=== PATIENT | male | born 1990 | race Caucasian/White ===

== ENCOUNTER 2020-03-13 09:04 | Emergency (ER) | payer OTHER ==
[~2020-03-13] VITALS: Ht 170.2 cm; Wt 71.2 kg
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
--- NOTE | 2020-03-13 09:08 | NUR ---
SEEN AND EXAMINED BY .
--- NOTE | 2020-03-13 10:55 | NUR ---
Patient discharged in custody in stable condition. Written and verbal after care instructions given. Patient verbalizes understanding of instruction.
[2020-03-13 11:21] VITALS: BP 127/72
== END 2020-03-13 11:21 ==
LOC: ER 09:13
DX: T40.691A Poisoning by other narcotics, accidental (unintentional), initial encounter (principal); R00.0 Tachycardia, unspecified; Z02.89 Encounter for other administrative examinations; Y92.89 Other specified places as the place of occurrence of the external cause
CPT/HCPCS: 82962-TC